=== PATIENT | male | born 1970 | race Caucasian/White ===

== ENCOUNTER 2022-01-06 15:37 | Observation (INO) ==
--- NOTE | 2022-01-06 15:51 | ED Triage Note ---
Date of Service January 06, 2022 History of Present Illness This patient was briefly evaluated while in triage. An abbreviated physical exam was performed. This patient is a 51-year-old Male with past medical history of Crohn's disease who presents to the ED for evaluation of sudden onset of amnesia. Pt. having difficulty remembering events of today and that his had back surgery 3 weeks ago. Pt. presents with a friend who was contacted by the to bring him in. Physical Exam VITALS: Vitals are noted on the nurse's note and reviewed by myself. GENERAL: This is a 51 year old white male, in no acute distress, nondiaphoretic, well-developed well-nourished. SKIN: No rashes, edema, erythema HEAD: Normocephalic atraumatic. EYES: Conjunctivae without injection, sclerae without icterus. NECK: No lymphadenopathy. No JVD. LUNGS: No retractions or accessory muscle use. MUSCULOSKELETAL: Normal gait. NEURO: Patient was alert and oriented to person and place. Unable to recall year. Initial orders for labs and / or imaging were placed and patient was placed in the waiting area until a bed is available. Please see further documentation for the full ED course.
[2022-01-06 16:15] LABS: Basophils # (auto) 0.04 K/uL (0-0.2); Basophils % (auto) 0.4 %; Eosinophils # (auto) 0.07 K/uL (0-0.50); Eosinophils % (auto) 0.8 %; Hematocrit (blood only) 43.3 % (40.1-51.0); Hemoglobin 14.5 g/dl (14.0-18.0); Immature Granulocytes # (auto) 0.04 K/uL (0.00-0.02); Immature Granulocytes % (auto) 0.4 %; Lymphocytes # (auto) 1.47 K/uL (1.2-3.4); Lymphocytes % (auto) 15.8 %; Mean Corpuscular Hemoglobin 29.5 pg (25.0-34.0); Mean Corpuscular Hgb Conc 33.5 g/dL (32.0-36.0); Mean Corpuscular Volume 88.2 fL (80.0-100.0); Mean Platelet Volume 9.6 fL (9.4-12.4); Monocytes # (auto) 0.74 K/uL (0.24-0.82); Monocytes % (auto) 7.9 %; Neutrophils # (auto) 6.96 K/uL (1.4-6.5); Neutrophils % (auto) 74.7 %; Platelet Count 243 K/uL (130-400); RDW Coefficient of Variation 14.3 % (11.5-14.5); RDW Standard Deviation 46.2 fL (36.4-46.3); Red Blood Count 4.91 M/uL (4.63-6.08); White Blood Count 9.32 K/ul (4.8-10.8)
[2022-01-06 16:17] LABS: iSTAT Creatinine 0.9 mg/dl (0.6-1.3); iSTAT Hemoglobin 15.3 g/dl (14.0-18.0); iSTAT Ionized Calcium 1.18 mmol/l (1.12-1.32); iSTAT Potassium 3.8 mmol/L (3.3-5.0)
[2022-01-06 16:24] LABS: Partial Thromboplastin Ratio 0.9; Partial Thromboplastin Time 23.4 Seconds (21.0-31.0); Prothrombin Time 10.3 Seconds (9.0-12.0)
[2022-01-06] MEDS ORDERED: OPTIRAY 320 125ml IV ONE (16:30)
--- NOTE | 2022-01-06 16:34 | CT Scan Report ---
CT SCAN OF THE BRAIN WITHOUT IV CONTRAST CLINICAL HISTORY: Strokelike symptoms. Change in mental status. COMPARISON STUDY: No priors. TECHNIQUE: Unenhanced axial CT scan of the brain is performed from the vertex to the skull base. A d ose lowering technique was utilized adhering to the principles of ALARA. CT DOSE: 788.63 mGycm FINDINGS: Brain parenchyma: The brain parenchyma is normal in appearance. There is no hemorrhage, mass effect, or evidence of acute territorial ischemia by CT criteria. Good-white matter differentiation is preser justine. No extra-axial fluid collection is seen. Ventricles, sulci, cisterns: Normal in configuration. Intracranial vasculature: The visualized intracranial vasculature at the skull base is normal in appe arance. Calvarium: Unremarkable. Sinuses and mastoids: The visualized paranasal sinuses are clear. The mastoid air cells are well pneu matized. Orbits: The bony orbits are grossly intact. IMPRESSION: There is no hemorrhage, mass effect, or evidence of acute territorial ischemia by CT nadir pal. ACT 112: Negative or not required by law. Electronically signed by: Iam Su M.D. 01/06/2022 4:32 PM
[2022-01-06 16:36] LABS: Troponin I High Sensitivity 6.3 pg/ml (0-20)
[2022-01-06 16:37] LABS: Albumin Globulin Ratio 1.5 (0.9-2); Albumin Level 4.2 gm/dl (3.4-5.0); BUN Creatinine Ratio 28.1 (10-20); Bilirubin,Total 0.8 mg/dl (0.2-1.0); Calcium 9.2 mg/dl (8.5-10.1); Creatinine Clr Calc Pharmacy 123.8 ml/min; Est GFR (African American) 114.7 ml/min; Globulin 2.8 gm/dl (2.5-4.0); Magnesium 1.9 mg/dl (1.7-2.4); Potassium 3.8 mmol/L (3.5-5.1)
--- NOTE | 2022-01-06 16:47 | CT Scan Report ---
CT ANGIOGRAM OF THE BRAIN; CT ANGIOGRAM OF THE NECK CLINICAL HISTORY: Strokelike symptoms. Change in mental status. COMPARISON STUDY: Unenhanced CT of the brain performed concurrently on 01/06/2022. TECHNIQUE: Following the IV administration of 120 of Optiray 320, CT angiogram of the head and neck w as performed from the aortic arch to the vertex. Images are reviewed in the axial, sagittal, and amena nal planes. 3-D MIPS images are created and assessed. IV contrast was administered without complicati on. All measurements were calculated based on NASCET criteria. A dose lowering technique was utilize d adhering to the principles of ALARA. CT DOSE: 992.60 mGycm FINDINGS: Brain parenchyma: The brain parenchyma is normal in appearance. There is no evidence of hemorrhage, m ass effect, or acute territorial ischemia noting angiographic phase technique. There is no evidence o f enhancing mass lesion on the angiogram phase images. The ventricles, sulci, and cisterns are normal in configuration. Good-white matter differentiation is preserved. No extra-axial fluid collection is seen. Thoracic aorta: Visualized portions of the thoracic aorta are normal in caliber. The aortic arch demo nstrates standard 3-vessel anatomy. Right carotid arterial system: The right common carotid artery is widely patent, as are the right int ernal and external carotid arteries. Left carotid arterial system: The left common carotid artery is widely patent, as are the left customer operations intern al and external carotid arteries. Vertebral arteries: The vertebral arteries are widely patent bilaterally noting left-sided dominance. Subclavian arteries: Widely patent bilaterally. Intracranial vasculature: The internal carotid arteries are patent at the skull base, as are the ante rior and middle cerebral arteries bilaterally. The vertebrobasilar system and posterior cerebral phillip daya are widely patent. The left vertebral artery is dominant. There is no aneurysm, high-grade steno sis, or focal vessel cut off seen throughout the intracranial circulation. Jugular veins: Patent bilaterally. Dural sinuses: Patent. Lung apices: Partially visualized upper lobe lung parenchyma appears clear. Soft tissues: The visualized pharyngeal soft tissues are normal in appearance noting angiographic pha se technique. The oropharyngeal airway appears widely patent. The salivary and thyroid glands are nor mal in appearance. No cervical lymphadenopathy is seen. Skeletal structures: The calvarium appears intact. The cervical spine is within normal limits. Orbits: The bony orbits are intact. Orbital contents are normal as visualized. Sinuses and mastoids: The paranasal sinuses are clear. The mastoid air cells are well pneumatized. IMPRESSION: 1. There is no evidence of hemorrhage, mass effect, or acute territorial ischemia noting angiographic phase technique. 2. Unremarkable CT angiogram of the brain. 3. Unremarkable CT angiogram of the neck. ACT 112: Negative or not required by law. Electronically signed by: Iam Su M.D. 01/06/2022 4:46 PM
[2022-01-06 17:02] LABS: Appearance Urine Clear (Clear); Bacteria Urine Automated Negative (Negative); Bilirubin Urine Negative (Negative); Blood Urine 1+ (Negative); Cast Urine Automated 0 /lpf (0-5); Color Urine Yellow; Epithelial Cell Urine Auto 0-5 /lpf (0-5); Glucose Urine UA Negative (Negative); Ketones Urine 1+ (Negative); Leukocyte Esterase Urine Negative (Negative); Nitrite Urine Negative (Negative); Protein Urine Negative (Negative); RBC Urine Automated 0-4 /hpf (0-4); Specific Gravity Urine > 1.045 (1.000-1.030); Urobilinogen Urine Negative (Negative); WBC Urine Automated 0 /hpf (0-5)
--- NOTE | 2022-01-06 17:02 | XRay Report ---
SINGLE VIEW CHEST CLINICAL HISTORY: Strokelike symptoms. Change in mental status. FINDINGS: 2 AP, portable, upright chest radiographs are obtained. No prior studies are available for comparison at the time of dictation. The cardiomediastinal silhouette is unremarkable. The lungs and pleural spaces are clear. No pneumothorax is seen. The bony thorax is grossly intact. IMPRESSION: No active disease in the chest. ACT 112: Negative or not required by law. Electronically signed by: Iam Su M.D. 01/06/2022 5:00 PM
[2022-01-06 17:33] LABS: Amphetamines+Metham, Urine Neg (Neg); Barbiturates, Urine Neg (Neg); Benzodiazepine, Urine Neg (Neg); Cocaine, Urine Neg (Neg); MDMA (Ecstacy), Urine Neg (Neg); Methadone, Urine Neg (Neg); Opiate, Urine Neg (Neg); Phencyclidine, Urine Neg (Neg)
[2022-01-06] MEDS ORDERED: LACTATED RINGER'S 1,000 ML IV ONE (17:58)
--- NOTE | 2022-01-06 18:13 | History & Physical Report ---
Date of Service January 06, 2022 Assessment & Plan (1) Transient global amnesia: Plan: Orgasm as precipitating event in setting of mild dehydration (BUN increase, high specific gravity urine with ketonuria) No other neurological deficits but prudent to get MRI brain w/o contrast Consult neurology - if completely back to his normal self tomorrow and MRI negative suspect this can be cancelled (2) Crohn's disease: Plan: No active flare. Continue azathioprine 150mg PO daily. Plan: VTE Prophylaxis - low risk Diet - heart healthy Disposition - observation status to med/tele Admission and Anticipated Discharge Date Admission Date: January 06, 2022 History of Present Illness Chief Complaint: Altered mental state Primary Care Provider: Hugh Oviedo MD Jake Limon is a 51 year old male who presents to the ER with altered mental state. The patient cannot remember anything that happened today, yesterday or generally what he was doing earlier this week. He is unable to tell me the last thing he remembers. He is orientated to the year and month but not date or day. Aware he is in [facility] but cannot remember getting here. 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 History is taken from his over the phone. She reports he was in his normal health earlier today and this started suddenly after he received oral sex around 1:30pm today. Sudden onset amnesia since but he has been walking around fine. Other than his memory she has not noticed any facial droop, extremity weakness, change in speech, vision or hearing. In the ER stroke workup with CT head and CT angiogram head and neck were negative. Urine toxicology screen negative. She denies he has been drinking alcohol.No infection signs or symptoms found. He was referred to medicine due to persistent amnesia. Allergies Allergy/AdvReac Type Severity Reaction Status Date / Time No Known Allergies Allergy Mild Verified 01/06/22 17:25 Home Medications Medication Instructions Recorded Confirmed Type cyclobenzaprine 10 mg tablet 10 mg PO TID PRN #30 tab 06/30/21 01/06/22 Rx azathioprine 50 mg tablet 150 mg PO QAM 01/06/22 01/06/22 History Past Med/Surg History Medical History Anemia HISTORY OF ANEMIA Colon ulcer Crohn's disease Triceps tendon rupture RIGHT SIDE (REASON FOR SURGERY) Surgical History History of colonoscopy LAST ONE 2 YEARS AGO Hx of elbow surgery Hx of LASIK Hx of right knee surgery Hx of vasectomy Family History Mother Aortic aneurysm Marfans syndrome Aunt Breast cancer Grandmother (Paternal) Colorectal cancer Sister Marfans syndrome Transient ischemic attack (TIA) Father Parkinson disease Stroke Social History Smoking Status: Never smoker Second Hand Exposure: No; Hx Alcohol Use: Yes Alcohol type: beer Hx Substance Use: No Preferred Language: Persian Communication Ability: Effective Visual Impairment: No Limitations Crown Ceramist Required: No Beliefs That Will Affect Care: None marital status: Current Living Situation: Spouse Current Living Situation Comment: AND DAUGHTER current occupational status: employed current occupation: [employer] Other Information That Helps Us Care for You: No other: Previous [employer] Service- 20 years in [employer] Feels Safe at Home: Yes Safety Concerns: Feels Safe At This Time Assistive Devices: None Review of Systems Review of Systems: All systems reviewed & are unremarkable except as noted in HPI & below Physical Exam Constitutional: WD/WN, vitals as above Eyes: PERRL, conjunctivae normal, anicteric sclerae EOM intact bilaterally ENMT: external ear and nose normal, oropharynx normal Neck: trachea midline, no thyromegaly Respiratory: normal respiratory effort, lungs clear to auscultation Cardiovascular: RRR, no murmur, no edema Gastrointestinal (Abdomen): normal bowel sounds, soft, nontender, no hepatosplenomegaly Musculoskeletal: no cyanosis or clubbing, extremities motor strength 5/5 Skin: no rashes, warm and dry Neurologic: moves all extremities and awake; no focal motor deficits and not confused Speech / Cognition: normal speech Motor/Sensory: no tremor and no pronator drift Coordination: normal knjfac-lw-vwei test and normal h eel-to-venegas test Psychiatric: A+Ox3, euthymic affect Genitourinary: no CVA tenderness Results & Data Results & Data ([facility]) Vital Signs (Past 12 Hours) Vital Signs Temp Pulse Pulse Resp BP BP Pulse Ox 01/06/22 17:20 72 19 147/90 H 97 01/06/22 16:12 65 19 140/93 98 01/06/22 15:48 36.6 C 65 16 140/92 96 Laboratory Results Abnormal lab results 01/06/22 01/06/22 01/06/22 Range/Units 15:59 15:59 16:04 Neut # (Auto) 6.96 H (1.4-6.5) K/uL Immature Gran # (Auto) 0.04 H (0.00-0.02) K/uL Sodium 135 L (136-145) mmol/L POC Anion Gap 15.0 L (16-25) mmol/L POC BUN 24 H (7-18) mg/dl BUN 25 H (6-23) mg/dl BUN/Creatinine Ratio 28.1 H (10-20) Ur Specific [place] (1.000-1.030) Urine Ketones (Negative) Urine Blood (Negative) 01/06/22 Range/Units 16:42 Neut # (Auto) (1.4-6.5) K/uL Immature Gran # (Auto) (0.00-0.02) K/uL Sodium (136-145) mmol/L POC Anion Gap (16-25) mmol/L POC BUN (7-18) mg/dl BUN (6-23) mg/dl BUN/Creatinine Ratio (10-20) Ur Specific [place] > 1.045 H (1.000-1.030) Urine Ketones 1+ H (Negative) Urine Blood 1+ H (Negative) Diagnostic Findings SINGLE VIEW CHEST CLINICAL HISTORY: Strokelike symptoms. Change in mental status. FINDINGS: 2 AP, portable, upright chest radiographs are obtained. No prior studies are available for comparison at the time of dictation. The cardiomediastinal silhouette is unremarkable. The lungs and pleural spaces are clear. No pneumothorax is seen. The bony thorax is grossly intact. IMPRESSION: No active disease in the chest. CT SCAN OF THE BRAIN WITHOUT IV CONTRAST CLINICAL HISTORY: Strokelike symptoms. Change in mental status. COMPARISON STUDY: No priors. TECHNIQUE: Unenhanced axial CT scan of the brain is performed from the vertex to the skull base. A dose lowering technique was utilized adhering to the principles of ALARA. CT DOSE: 788.63 mGycm FINDINGS: Brain parenchyma: The brain parenchyma is normal in appearance. There is no hemorrhage, mass effect, or evidence of acute territorial ischemia by CT criteria. Good-white matter differentiation is preserved. No extra-axial fluid collection is seen. Ventricles, sulci, cisterns: Normal in configuration. Intracranial vasculature: The visualized intracranial vasculature at the skull base is normal in appearance. Calvarium: Unremarkable. Sinuses and mastoids: The visualized paranasal sinuses are clear. The mastoid air cells are well pneumatized. Orbits: The bony orbits are grossly intact. IMPRESSION: There is no hemorrhage, mass effect, or evidence of acute territorial ischemia by CT criteria. CT ANGIOGRAM OF THE BRAIN; CT ANGIOGRAM OF THE NECK CLINICAL HISTORY: Strokelike symptoms. Change in mental status. COMPARISON STUDY: Unenhanced CT of the brain performed concurrently on 01/06/2022. TECHNIQUE: Following the IV administration of 120 of Optiray 320, CT angiogram of the head and neck was performed from the aortic arch to the vertex. Images are reviewed in the axial, sagittal, and coronal planes. 3-D MIPS images are created and assessed. IV contrast was administered without complication. All measurements were calculated based on NASCET criteria. A dose lowering technique was utilized adhering to the principles of ALARA. CT DOSE: 992.60 mGycm FINDINGS: Brain parenchyma: The brain parenchyma is normal in appearance. There is no evidence of hemorrhage, mass effect, or acute territorial ischemia noting angiographic phase technique. There is no evidence of enhancing mass lesion on the angiogram phase images. The ventricles, sulci, and cisterns are normal in configuration. Good-white matter differentiation is preserved. No extra-axial fluid collection is seen. Thoracic aorta: Visualized portions of the thoracic aorta are normal in caliber. The aortic arch demonstrates standard 3-vessel anatomy. Right carotid arterial system: The right common carotid artery is widely patent, as are the right internal and external carotid arteries. Left carotid arterial system: The left common carotid artery is widely patent, as are the left internal and external carotid arteries. Vertebral arteries: The vertebral arteries are widely patent bilaterally noting left-sided dominance. Subclavian arteries: Widely patent bilaterally. Intracranial vasculature: The internal carotid arteries are patent at the skull base, as are the anterior and middle cerebral arteries bilaterally. The vertebrobasilar system and posterior cerebral arteries are widely patent. The left vertebral artery is dominant. There is no aneurysm, high-grade stenosis, or focal vessel cut off seen throughout the intracranial circulation. Jugular veins: Patent bilaterally. Dural sinuses: Patent. Lung apices: Partially visualized upper lobe lung parenchyma appears clear. Soft tissues: The visualized pharyngeal soft tissues are normal in appearance noting angiographic phase technique. The oropharyngeal airway appears widely patent. The salivary and thyroid glands are normal in appearance. No cervical lymphadenopathy is seen. Skeletal structures: The calvarium appears intact. The cervical spine is within normal limits. Orbits: The bony orbits are intact. Orbital contents are normal as visualized. Sinuses and mastoids: The paranasal sinuses are clear. The mastoid air cells are well pneumatized. IMPRESSION: 1. There is no evidence of hemorrhage, mass effect, or acute territorial ischemia noting angiographic phase technique. 2. Unremarkable CT angiogram of the brain. 3. Unremarkable CT angiogram of the neck. Medications Administered ER Medications Given: None ECG Indication: altered mental status Rate (beats per minute): 65 Rhythm: normal sinus Findings: no acute ischemic change Comparison ECG Date: no prior available Code Status & VTE Plan Code Status Full VTE Prophylaxis Plan VTE Prophylaxis will be ordered: No PG Care Time/CCT Total # of Minutes Spent Total Time Spent with Patient: Total time spent is greater than 50% in coordination of care (as documented) at patient's floor/unit and/or counseling patient: Coding Level of Care Code INT OBSERVATION CARE 70M LVL 3 Diagnoses Transient global amnesia G45.4 Crohn's disease K50.90
--- NOTE | 2022-01-06 18:21 | Emergency Department Note ---
History of Present Illness General Chief complaint: Confusion Stated complaint: SUDDEN AMNESIA Time Seen by Provider: 01/06/22 16:22 Source: patient and family ( on Frederic and friend at bedside) History of Present Illness Provider complaint: Altered mental status Onset (ago): hour(s) (2.5) Associated symptoms: + confusion; no fever/chills, no headaches, no nausea/vomiting or no seizure 51-year-old male presents emergency department with friend for altered mental status. Friend at bedside was able to call the on Frederic who was able to give the majority of the history. The reports that at 1330 she was performing oral sex on the patient and then after she finished at 1345 she noticed that the patient was very confused. She noticed that the patient was repetitively asking the same question over and over again and could not remember anything. She denies that the patient fell or hit his head. Patient is currently not reporting any chest pain. No nausea and vomiting per the or patient. No fever. denies any alcohol or drug use by herself or the patient. Home Medications Medication Instructions Recorded Confirmed Type cyclobenzaprine 10 mg tablet 10 mg PO TID PRN #30 tab 06/30/21 01/06/22 Rx azathioprine 50 mg tablet 150 mg PO QAM 01/06/22 01/06/22 History Allergies Allergy/AdvReac Type Severity Reaction Status Date / Time No Known Allergies Allergy Mild Verified 01/06/22 17:25 Past Med/Surg History Medical History Anemia HISTORY OF ANEMIA Colon ulcer Crohn's disease Triceps tendon rupture RIGHT SIDE (REASON FOR SURGERY) Surgical History History of colonoscopy LAST ONE 2 YEARS AGO Hx of elbow surgery Hx of LASIK Hx of right knee surgery Hx of vasectomy Family History Mother Aortic aneurysm Marfans syndrome Aunt Breast cancer Grandmother (Paternal) Colorectal cancer Sister Marfans syndrome Transient ischemic attack (TIA) Father Parkinson disease Stroke Social History Smoking Status: Never smoker Second Hand Exposure: No; Hx Alcohol Use: Yes Alcohol type: beer Hx Substance Use: No Preferred Language: Argentine Communication Ability: Effective Visual Impairment: No Limitations Beliefs That Will Affect Care: None marital status: Current Living Situation: Family Current Living Situation Comment: AND DAUGHTER current occupational status: employed current occupation: Teacher- [employer] other: Previous [employer]- 20 years in [place] Feels Safe at Home: Yes Assistive Devices: None Review of Systems Unobtainable due to cognitive status Physical Exam Vital Signs Vital Signs - 24 hr 01/06/22 15:48 01/06/22 16:12 01/06/22 17:20 Temperature 36.6 C Temperature Source Temporal Artery Scan Pulse Rate 65 Pulse Rate [Right Finger] 65 72 Respiratory Rate 16 19 19 Blood Pressure 140/92 Blood Pressure [Right Arm] 140/93 147/90 H Blood Pressure Mean 108 Blood Pressure Mean [Right Arm] 108 109 Blood Pressure Position Sitting Pulse Oximetry 96 98 97 Oxygen Delivery Method Room Air Room Air Room Air Sepsis Recent Fever Within 48 Hours No Sepsis New/Unexplained Change in Mental Status No Sepsis Action Taken by Nursing No Action Required 01/06/22 18:14 Temperature Temperature Source Pulse Rate Pulse Rate [Right Finger] 69 Respiratory Rate 19 Blood Pressure Blood Pressure [Right Arm] 133/94 Blood Pressure Mean Blood Pressure Mean [Right Arm] 107 Blood Pressure Position Pulse Oximetry 97 Oxygen Delivery Method Room Air Sepsis Recent Fever Within 48 Hours Sepsis New/Unexplained Change in Mental Status Sepsis Action Taken by Nursing Physical Exam HENT: Exam performed. - Head: Normocephalic and atraumatic. - Right Ear: External ear normal. No mastoid tenderness. - Left Ear: External ear normal. No mastoid tenderness. - Mouth/Throat: The oropharynx is clear and moist. No trismus in the jaw. No dental abscesses or uvula swelling. No oropharyngeal exudate or tonsillar abscesses. EYES: Conjunctivae and EOM are normal. Pupils are equal, round, and reactive to light. Right eye exhibits no discharge. Left eye exhibits no discharge. No scleral icterus. NECK: Normal range of motion. Neck supple. No JVD present. No spinous process tenderness present. No carotid bruit present. No rigidity. No tracheal deviation and normal range of motion present. No Brudzinski's sign and no Kernig's sign noted. CV: Normal rate, regular rhythm, normal heart sounds and intact distal pulses. There is no peripheral edema. Palpable radial pulses bue. PULM/CHEST: Effort normal and breath sounds normal. No respiratory distress. No stridor. He has no wheezes. He has no rales. - Chest Wall: He exhibits no tenderness. ABD: The abdomen is soft. Bowel sounds are normal. He has no distension. No mass is present. There is no tenderness. There is no rebound, no guarding, no Carballo's sign and no tenderness at McBurney's point. Rovsig negative. MUSC/SKEL: Normal range of motion. There is no peripheral edema, tenderness or deformity. LYMPH: No cervical adenopathy. NEURO: He is alert and oriented to place and time. Patient is not oriented to person. He has normal strength. No cranial nerve deficit or sensory deficit. Coordination and gait normal. Cerebellar tests wnl. SKIN: Skin is warm and dry. He is not diaphoretic. Course Course 1622: The patient was evaluated in room C9. A complete history and physical exam was performed Cardiac monitoring: An order was placed for continuous cardiac monitoring. The monitor shows a rate of65 with sinus rhythm Patient was seen during a time of extreme volume and extreme acuity in the emergency department. Nursing triage protocols were initiated and labs were drawn by protocol in the triage area. 1800: Vital signs stable. On repeat physical exam the patient has no meningeal signs motor and sensation grossly intact ambulating without difficulty no dysarthria or aphasia. Labs and imaging are within normal limits. Patient's alcohol is still pending. Findings are concerning for global amnesia. Discussed case with Dr. [facility] hospitalist who reviewed the patient's case for admission. Administered Medications Lactated Ringer's (Lr) 1,000 mls @ 999 mls/hr IV .[id number] ONE Stop: 01/06/22 18:58 Last Admin: 01/06/22 18:22 Dose: 999 mls/hr Documented by: [id number] Discontinued Medications Ioversol (Optiray 320 125ml) 120 ml IV ONCE ONE Stop: 01/06/22 16:31 Last Admin: 01/06/22 16:30 Dose: 120 ml Documented by: [id number] Medical Decision Making Laboratory Data Result diagrams: 01/06/22 15:59 01/06/22 15:59 Lab Results 01/06/22 01/06/22 01/06/22 Range/Units 15:59 15:59 15:59 WBC 9.32 (4.8-10.8) K/ul RBC 4.91 (4.63-6.08) M/uL Hgb 14.5 (14.0-18.0) g/dl POC Hgb (14.0-18.0) g/dl Hct 43.3 (40.1-51.0) % POC Hct (42-52) % MCV 88.2 (80.0-100.0) fL MCH 29.5 (25.0-34.0) pg MCHC 33.5 (32.0-36.0) g/dL RDW Std Deviation 46.2 (36.4-46.3) fL RDW Coeff of Hollie 14.3 (11.5-14.5) % Plt Count 243 (130-400) K/uL MPV 9.6 (9.4-12.4) fL Immature Gran % (Auto) 0.4 % Neut % (Auto) 74.7 % Lymph % (Auto) 15.8 % [facility] % (Auto) 7.9 % Eos % (Auto) 0.8 % Baso % (Auto) 0.4 % Neut # (Auto) 6.96 H (1.4-6.5) K/uL Lymph # (Auto) 1.47 (1.2-3.4) K/uL [facility] # (Auto) 0.74 (0.24-0.82) K/uL Eos # (Auto) 0.07 (0-0.50) K/uL Baso # (Auto) 0.04 (0-0.2) K/uL Immature Gran # (Auto) 0.04 H (0.00-0.02) K/uL PT 10.3 (9.0-12.0) Seconds INR 1.0 (0.9-1.1) APTT 23.4 (21.0-31.0) Seconds PTT Ratio 0.9 POC Sodium (135-144) mmol/L Sodium 135 L (136-145) mmol/L POC Potassium (3.3-5.0) mmol/L Potassium 3.8 (3.5-5.1) mmol/L POC Chloride (101-112) mmol/L Chloride 103 (98-107) mmol/L Carbon Dioxide 25 (21-32) mmol/L POC Total CO2 (24-31) mmol/L Anion Gap 7 (3-11) POC Anion Gap (16-25) mmol/L POC BUN (7-18) mg/dl BUN 25 H (6-23) mg/dl Creatinine 0.89 (0.6-1.4) mg/dl POC Creatinine (0.6-1.3) mg/dl Est Cr Clr Drug Dosing 123.8 ml/min Est GFR ( Amer) 114.7 ml/min Est GFR (Non-Af Amer) 99.0 ml/min BUN/Creatinine Ratio 28.1 H (10-20) Glucose 95 (70-99(Fasting)) mg/dl POC Glucose (other) (70-99) mg/dl Calcium 9.2 (8.5-10.1) mg/dl POC Ioniz Calcium Franklin (1.12-1.32) mmol/l Magnesium 1.9 (1.7-2.4) mg/dl Total Bilirubin 0.8 (0.2-1.0) mg/dl AST 20 (13-39) U/L ALT 19 (7-52) U/L Alkaline Phosphatase 56 (34-104) U/L Troponin I High Sens 6.3 (0-20) pg/ml Total Protein 7.0 (6.0-8.3) gm/dl Albumin 4.2 (3.4-5.0) gm/dl Globulin 2.8 (2.5-4.0) gm/dl Albumin/Globulin Ratio 1.5 (0.9-2) Urine Color Urine Appearance (Clear) Urine pH (4.5-7.5) Ur Specific Daisy (1.000-1.030) Urine Protein (Negative) Urine Glucose (UA) (Negative) Urine Ketones (Negative) Urine Blood (Negative) Urine Nitrite (Negative) Urine Bilirubin (Negative) Urine Urobilinogen (Negative) Ur Leukocyte Esterase (Negative) Urine WBC (Auto) (0-5) /hpf Urine RBC (Auto) (0-4) /hpf U Hyaline Cast (Auto) (0-5) /lpf U Epithel Cells (Auto) (0-5) /lpf Urine Bacteria (Auto) (Negative) Urine Opiates Screen (Neg) Ur Methadone, Qual (Neg) Urine Barbiturates (Neg) Ur Phencyclidine (PCP) (Neg) U Amphetamin/Meth Scrn (Neg) MDMA (Ecstasy) Screen (Neg) U Benzodiazepines Scrn (Neg) Ur Cocaine Metabolite (Neg) U Marijuana (THC) Screen (Neg) Ethyl Alcohol mg/dL (<10.0) mg/dl SARS-CoV-2, RNA, NAAT (NEGATIVE) Blood Type Antibody Screen 01/06/22 01/06/22 01/06/22 Range/Units 16:04 16:09 16:42 WBC (4.8-10.8) K/ul RBC (4.63-6.08) M/uL Hgb (14.0-18.0) g/dl POC Hgb 15.3 (14.0-18.0) g/dl Hct (40.1-51.0) % POC Hct 45 (42-52) % MCV (80.0-100.0) fL MCH (25.0-34.0) pg MCHC (32.0-36.0) g/dL RDW Std Deviation (36.4-46.3) fL RDW Coeff of Hollie (11.5-14.5) % Plt Count (130-400) K/uL MPV (9.4-12.4) fL Immature Gran % (Auto) % Neut % (Auto) % Lymph % (Auto) % [facility] % (Auto) % Eos % (Auto) % Baso % (Auto) % Neut # (Auto) (1.4-6.5) K/uL Lymph # (Auto) (1.2-3.4) K/uL [facility] # (Auto) (0.24-0.82) K/uL Eos # (Auto) (0-0.50) K/uL Baso # (Auto) (0-0.2) K/uL Immature Gran # (Auto) (0.00-0.02) K/uL PT (9.0-12.0) Seconds INR (0.9-1.1) APTT (21.0-31.0) Seconds PTT Ratio POC Sodium 137 (135-144) mmol/L Sodium (136-145) mmol/L POC Potassium 3.8 (3.3-5.0) mmol/L Potassium (3.5-5.1) mmol/L POC Chloride 101 (101-112) mmol/L Chloride (98-107) mmol/L Carbon Dioxide (21-32) mmol/L POC Total CO2 25 (24-31) mmol/L Anion Gap (3-11) POC Anion Gap 15.0 L (16-25) mmol/L POC BUN 24 H (7-18) mg/dl BUN (6-23) mg/dl Creatinine (0.6-1.4) mg/dl POC Creatinine 0.9 (0.6-1.3) mg/dl Est Cr Clr Drug Dosing ml/min Est GFR ( Amer) ml/min Est GFR (Non-Af Amer) ml/min BUN/Creatinine Ratio (10-20) Glucose (70-99(Fasting)) mg/dl POC Glucose (other) 97 (70-99) mg/dl Calcium (8.5-10.1) mg/dl POC Ioniz Calcium Franklin 1.18 (1.12-1.32) mmol/l Magnesium (1.7-2.4) mg/dl Total Bilirubin (0.2-1.0) mg/dl AST (13-39) U/L ALT (7-52) U/L Alkaline Phosphatase (34-104) U/L Troponin I High Sens (0-20) pg/ml Total Protein (6.0-8.3) gm/dl Albumin (3.4-5.0) gm/dl Globulin (2.5-4.0) gm/dl Albumin/Globulin Ratio (0.9-2) Urine Color Yellow Urine Appearance Clear (Clear) Urine pH 5.0 (4.5-7.5) Ur Specific Daisy > 1.045 H (1.000-1.030) Urine Protein Negative (Negative) Urine Glucose (UA) Negative (Negative) Urine Ketones 1+ H (Negative) Urine Blood 1+ H (Negative) Urine Nitrite Negative (Negative) Urine Bilirubin Negative (Negative) Urine Urobilinogen Negative (Negative) Ur Leukocyte Esterase Negative (Negative) Urine WBC (Auto) 0 (0-5) /hpf Urine RBC (Auto) 0-4 (0-4) /hpf U Hyaline Cast (Auto) 0 (0-5) /lpf U Epithel Cells (Auto) 0-5 (0-5) /lpf Urine Bacteria (Auto) Negative (Negative) Urine Opiates Screen (Neg) Ur Methadone, Qual (Neg) Urine Barbiturates (Neg) Ur Phencyclidine (PCP) (Neg) U Amphetamin/Meth Scrn (Neg) MDMA (Ecstasy) Screen (Neg) U Benzodiazepines Scrn (Neg) Ur Cocaine Metabolite (Neg) U Marijuana (THC) Screen (Neg) Ethyl Alcohol mg/dL (<10.0) mg/dl SARS-CoV-2, RNA, NAAT (NEGATIVE) Blood Type A Positive Antibody Screen NEGATIVE 01/06/22 01/06/22 01/06/22 Range/Units 16:42 17:50 18:03 WBC (4.8-10.8) K/ul RBC (4.63-6.08) M/uL Hgb (14.0-18.0) g/dl POC Hgb (14.0-18.0) g/dl Hct (40.1-51.0) % POC Hct (42-52) % MCV (80.0-100.0) fL MCH (25.0-34.0) pg MCHC (32.0-36.0) g/dL RDW Std Deviation (36.4-46.3) fL RDW Coeff of Hollie (11.5-14.5) % Plt Count (130-400) K/uL MPV (9.4-12.4) fL Immature Gran % (Auto) % Neut % (Auto) % Lymph % (Auto) % [facility] % (Auto) % Eos % (Auto) % Baso % (Auto) % Neut # (Auto) (1.4-6.5) K/uL Lymph # (Auto) (1.2-3.4) K/uL [facility] # (Auto) (0.24-0.82) K/uL Eos # (Auto) (0-0.50) K/uL Baso # (Auto) (0-0.2) K/uL Immature Gran # (Auto) (0.00-0.02) K/uL PT (9.0-12.0) Seconds INR (0.9-1.1) APTT (21.0-31.0) Seconds PTT Ratio POC Sodium (135-144) mmol/L Sodium (136-145) mmol/L POC Potassium (3.3-5.0) mmol/L Potassium (3.5-5.1) mmol/L POC Chloride (101-112) mmol/L Chloride (98-107) mmol/L Carbon Dioxide (21-32) mmol/L POC Total CO2 (24-31) mmol/L Anion Gap (3-11) POC Anion Gap (16-25) mmol/L POC BUN (7-18) mg/dl BUN (6-23) mg/dl Creatinine (0.6-1.4) mg/dl POC Creatinine (0.6-1.3) mg/dl Est Cr Clr Drug Dosing ml/min Est GFR ( Amer) ml/min Est GFR (Non-Af Amer) ml/min BUN/Creatinine Ratio (10-20) Glucose (70-99(Fasting)) mg/dl POC Glucose (other) (70-99) mg/dl Calcium (8.5-10.1) mg/dl POC Ioniz Calcium Franklin (1.12-1.32) mmol/l Magnesium (1.7-2.4) mg/dl Total Bilirubin (0.2-1.0) mg/dl AST (13-39) U/L ALT (7-52) U/L Alkaline Phosphatase (34-104) U/L Troponin I High Sens (0-20) pg/ml Total Protein (6.0-8.3) gm/dl Albumin (3.4-5.0) gm/dl Globulin (2.5-4.0) gm/dl Albumin/Globulin Ratio (0.9-2) Urine Color Urine Appearance (Clear) Urine pH (4.5-7.5) Ur Specific Daisy (1.000-1.030) Urine Protein (Negative) Urine Glucose (UA) (Negative) Urine Ketones (Negative) Urine Blood (Negative) Urine Nitrite (Negative) Urine Bilirubin (Negative) Urine Urobilinogen (Negative) Ur Leukocyte Esterase (Negative) Urine WBC (Auto) (0-5) /hpf Urine RBC (Auto) (0-4) /hpf U Hyaline Cast (Auto) (0-5) /lpf U Epithel Cells (Auto) (0-5) /lpf Urine Bacteria (Auto) (Negative) Urine Opiates Screen Neg (Neg) Ur Methadone, Qual Neg (Neg) Urine Barbiturates Neg (Neg) Ur Phencyclidine (PCP) Neg (Neg) U Amphetamin/Meth Scrn Neg (Neg) MDMA (Ecstasy) Screen Neg (Neg) U Benzodiazepines Scrn Neg (Neg) Ur Cocaine Metabolite Neg (Neg) U Marijuana (THC) Screen Neg (Neg) Ethyl Alcohol mg/dL < 10.0 (<10.0) mg/dl SARS-CoV-2, RNA, NAAT NEGATIVE (NEGATIVE) Blood Type Antibody Screen Imaging Data Radiologist's Impression: Chest X-Ray 01/06/22 15:52 SINGLE VIEW CHEST CLINICAL HISTORY: Strokelike symptoms. Change in mental status. FINDINGS: 2 AP, portable, upright chest radiographs are obtained. No prior studies are available for comparison at the time of dictation. The cardiomediastinal silhouette is unremarkable. The lungs and pleural spaces are clear. No pneumothorax is seen. The bony thorax is grossly intact. IMPRESSION: No active disease in the chest. ACT 112: Negative or not required by law. Electronically signed by: Iam Su M.D. 01/06/2022 5:[address] 01/06/22 15:52 CT SCAN OF THE BRAIN WITHOUT IV CONTRAST CLINICAL HISTORY: Strokelike symptoms. Change in mental status. COMPARISON STUDY: No priors. TECHNIQUE: Unenhanced axial CT scan of the brain is performed from the vertex to the skull base. A dose lowering technique was utilized adhering to the principles of ALARA. CT DOSE: 788.63 mGycm FINDINGS: Brain parenchyma: The brain parenchyma is normal in appearance. There is no hemorrhage, mass effect, or evidence of acute territorial ischemia by CT criteria. Good-white matter differentiation is preserved. No extra-axial fluid c ollection is seen. Ventricles, sulci, cisterns: Normal in configuration. Intracranial vasculature: The visualized intracranial vasculature at the skull base is normal in appearance. Calvarium: Unremarkable. Sinuses and mastoids: The visualized paranasal sinuses are clear. The mastoid air cells are well pneumatized. Orbits: The bony orbits are grossly intact. IMPRESSION: There is no hemorrhage, mass effect, or evidence of acute territorial ischemia by CT criteria. ACT 112: Negative or not required by law. Electronically signed by: Iam Su M.D. 01/06/2022 4:32 PM Head CTA 01/06/22 15:52 CT ANGIOGRAM OF THE BRAIN; CT ANGIOGRAM OF THE NECK CLINICAL HISTORY: Strokelike symptoms. Change in mental status. COMPARISON STUDY: Unenhanced CT of the brain performed concurrently on 01/06/2022. TECHNIQUE: Following the IV administration of 120 of Optiray 320, CT angiogram of the head and neck was performed from the aortic arch to the vertex. Images are reviewed in the axial, sagittal, and coronal planes. 3-D MIPS images are created and assessed. IV contrast was administered without complication. All measurements were calculated based on NASCET criteria. A dose lowering t echnique was utilized adhering to the principles of ALARA. CT DOSE: 992.60 mGycm FINDINGS: Brain parenchyma: The brain parenchyma is normal in appearance. There is no evidence of hemorrhage, mass effect, or acute territorial ischemia noting angiographic phase technique. There is no evidence of enhancing mass lesion on the angiogram phase images. The ventricles, sulci, and cisterns are normal in configuration. Good-white matter differentiation is preserved. No extra-axial fluid collection is seen. Thoracic aorta: Visualized portions of the thoracic aorta are normal in caliber. The aortic arch demonstrates standard 3-vessel anatomy. Right carotid arterial system: The right common carotid artery is widely patent, as are the right internal and external carotid arteries. Left carotid arterial system: The left common carotid artery is widely patent, as are the left internal and external carotid arteries. Vertebral arteries: The vertebral arteries are widely patent bilaterally noting left-sided dominance. Subclavian arteries: Widely patent bilaterally. Intracranial vasculature: The internal carotid arteries are patent at the skull base, as are the anterior and middle cerebral arteries bilaterally. The vertebrobasilar system and posterior cerebral arteries are widely patent. The left vertebral artery is dominant. There is no aneurysm, high-grade stenosis, or focal vessel cut off seen throughout the intracranial circulation. Jugular veins: Patent bilaterally. Dural sinuses: Patent. Lung apices: Partially visualized upper lobe lung parenchyma appears clear. Soft tissues: The visualized pharyngeal soft tissues are normal in appearance noting angiographic phase technique. The oropharyngeal airway appears widely patent. The salivary and thyroid glands are normal in appearance. No cervical lymphadenopathy is seen. Skeletal structures: The calvarium appears intact. The cervical spine is within normal limits. Orbits: The bony orbits are intact. Orbital contents are normal as visualized. Sinuses and mastoids: The paranasal sinuses are clear. The mastoid air cells are well pneumatized. IMPRESSION: 1. There is no evidence of hemorrhage, mass effect, or acute territorial ischemia noting angiographic phase technique. 2. Unremarkable CT angiogram of the brain. 3. Unremarkable CT angiogram of the neck. ACT 112: Negative or not required by law. Electronically signed by: Iam Su M.D. 01/06/2022 4:46 PM Neck CTA 01/06/22 15:52 CT ANGIOGRAM OF THE BRAIN; CT ANGIOGRAM OF THE NECK CLINICAL HISTORY: Strokelike symptoms. Change in mental status. COMPARISON STUDY: Unenhanced CT of the brain performed concurrently on 01/06. TECHNIQUE: Following the IV administration of 120 of Optiray 320, CT angiogram of the head and neck was performed from the aortic arch to the vertex. Images are reviewed in the axial, sagittal, and coronal planes. 3-D MIPS images are created and assessed. IV contrast was administered without complication. All measurements were calculated based on NASCET criteria. A dose lowering technique was utilized adhering to the principles of ALARA. CT DOSE: 992.60 mGycm FINDINGS: Brain parenchyma: The brain parenchyma is normal in appearance. There is no evidence of hemorrhage, mass effect, or acute territorial ischemia noting angiographic phase technique. There is no evidence of enhancing mass lesion on the angiogram phase images. The ventricles, sulci, and cisterns are normal in configuration. Good-white matter differentiation is preserved. No extra-axial fluid collection is seen. Thoracic aorta: Visualized portions of the thoracic aorta are normal in caliber. The aortic arch demonstrates standard 3-vessel anatomy. Right carotid arterial system: The right common carotid artery is widely patent, as are the right internal and external carotid arteries. Left carotid arterial system: The left common carotid artery is widely patent, as are the left internal and external carotid arteries. Vertebral arteries: The vertebral arteries are widely patent bilaterally noting left-sided dominance. Subclavian arteries: Widely patent bilaterally. Intracranial vasculature: The internal carotid arteries are patent at the skull base, as are the anterior and middle cerebral arteries bilaterally. The vertebrobasilar system and posterior cerebral arteries are widely patent. The left vertebral artery is dominant. There is no aneurysm, high-grade stenosis, or focal vessel cut off seen throughout the intracranial circulation. Jugular veins: Patent bilaterally. Dural sinuses: Patent. Lung apices: Partially visualized upper lobe lung parenchyma appears clear. Soft tissues: The visualized pharyngeal soft tissues are normal in appearance noting angiographic phase technique. The oropharyngeal airway appears widely patent. The salivary and thyroid glands are normal in appearance. No cervical lymphadenopathy is seen. Skeletal structures: The calvarium appears intact. The cervical spine is within normal limits. Orbits: The bony orbits are intact. Orbital contents are normal as visualized. Sinuses and mastoids: The paranasal sinuses are clear. The mastoid air cells are well pneumatized. IMPRESSION: 1. There is no evidence of hemorrhage, mass effect, or acute territorial ischemia noting angiographic phase technique. 2. Unremarkable CT angiogram of the brain. 3. Unremarkable CT angiogram of the neck. ACT 112: Negative or not required by law. Electronically signed by: Iam Su M.D. 01/06/2022 4:46 PM ECG Data Indication: + altered mental status Rate (beats per minute): 65 Rhythm: + normal sinus ECG Intervals/blocks: + Normal QRS, + Normal [place] and + Normal QT-c ECG ST segments: + Normal ST segments [facility] Narrative 1622: The patient was evaluated in room C9. A complete history and physical exam was performed Cardiac monitoring: An order was placed for continuous cardiac monitoring. The monitor shows a rate of65 with sinus rhythm Patient was seen during a time of extreme volume and extreme acuity in the emergency department. Nursing triage protocols were initiated and labs were drawn by protocol in the triage area. 1800: Vital signs stable. On repeat physical exam the patient has no meningeal signs motor and sensation grossly intact ambulating without difficulty no dysarthria or aphasia. Labs and imaging are within normal limits. Patient's alcohol is still pending. Findings are concerning for global amnesia. Discussed case with Dr. [facility] hospitalist who reviewed the patient's case for admission. Impression & Plan Transient global amnesia Discharge Plan Visit Data Chief Complaint: Confusion Stated Complaint: SUDDEN AMNESIA ED Provider: Johan Leal Discharge Problem: Transient global amnesia Patient Disposition: Being Evaluated by Hospitalist Forms Stand Alone Forms: [facility] Prescriptions Prescriptions: No Action cyclobenzaprine 10 mg tablet 10 mg PO TID PRN (Reason: muscle spasm) Qty: 30 RF: 0 azathioprine 50 mg tablet 150 mg PO QAM RF: 0 Referrals Referrals: Pro,Hugh Cruz MD [Primary Care Provider] -
--- NOTE | 2022-01-06 20:11 | Magnetic Resonance Report ---
MRI OF THE BRAIN WITHOUT IV CONTRAST CLINICAL HISTORY: Change in mental status. Amnesia COMPARISON STUDY: CT of the brain dated 01/06/2022. TECHNIQUE: MRI of the brain was performed utilizing various T1 and T2-weighted sequences in the axial , sagittal, and coronal planes. IV contrast was not administered for this examination. FINDINGS: Brain parenchyma: The brain parenchyma is normal in appearance. There is no hemorrhage or mass effect . There is no restricted diffusion to suggest acute ischemia. Good-white matter differentiation is pr eserved. No extra-axial fluid collection is seen. The cerebellar tonsils are normal in configuration. Ventricles, sulci, and cisterns: Normal in configuration. Pituitary and sella: Unremarkable. Intracranial vasculature: Normal flow voids are maintained at the skull base. Orbits: The bony orbits are grossly intact. Orbital contents are normal in appearance. Sinuses and mastoids: Clear. Calvarium: Unremarkable. Cervical cord: Partially visualized cervical spinal cord is normal in morphology and signal intensity . IMPRESSION: No acute intracranial abnormality. ACT 112: Negative or not required by law. Electronically signed by: Iam Su M.D. 01/06/2022 8:08 PM
[2022-01-06] MEDS ORDERED: ACETAMINOPHEN 325 MG TAB PO PRN (21:27)
[2022-01-06] MEDS: LACTATED RINGER'S 1,000 ML IV SCH (22:22)
[2022-01-07] MEDS: LACTATED RINGER'S 1,000 ML IV SCH (06:25)
[2022-01-07] MEDS ORDERED: azaTHIOprine 50 MG TAB PO SCH (09:00)
--- NOTE | 2022-01-07 09:57 | Neurology Consultation ---
Date of Consultation January 07, 2022 Assessment & Plan (1) Transient global amnesia: patient has a history of acute onset memory loss January 06 consistent with transient global amnesia. He had retrograde and anterograde amnesia, but these are improving. He has no focal neurologic findings or deficits on examination, meningeal signs, or encephalopathy. He has no speech issues. Neuro imaging was unremarkable and he has no evidence of stroke or vascular issues of the head or neck. The etiology of this event is likely temporal lobe vasospasm. I note that his blood pressure was elevated and he had some dehydration. These could have been the "set up" for this, triggered by orgasm. Recommendations: 1. I see no need for additional neurologic testing at this time. 2. there is no other additional specific treatment for transient global amnesia 3. Monitor blood pressure and keep hydrated. 4. Could follow up in Neurology in 2-3 weeks with the PA. Overall, I spent a total of 75 minutes with this case including review of records, review of MRI head CT films, direct evaluation the patient at bedside, and discussion of the case with the patient at bedside, the patient's , and Dr. Mcclain, Occluding differential diagnosis and treatment options. (2) Hypertension: History of Present Illness Reason for Consultation: Patient is a 51-year-old, who I was asked to see at the request of Dr. Alejandre for neurologic consultation regarding acute onset memory. Requesting Physician: Dr. Alejandre Attending Physician: Yan Mcclain MD History of Present Illness I spoke to the patient his via telephone, at the same time, to gather history. The patient has a history of Crohn's disease for the last 5-6 years on azathioprine currently. He is on no other medication. He has some anemia and history of colonic ulcer. Two weeks ago he started having some low back pain and spasms. He had a prednisone pack which helps some any finish this 2 days ago. Patient has been relaxed and enjoying the summer. He does not have significant anxiety or depression.Patient has no history of migraine headaches or other neurologic conditions. he has no history of hypertension, diabetes, heart disease, dyslipidemia, previous stroke. Patient woke up around 6 o'clock January 06 feeling. He came downstairs around 730-80 breakfast. He has been the morning doing various tasks including laundry and talking. He has some recollection of these events. He knew that he had yogurt for Lyme somewhere around noon or so. says the patient was cooking Bratwurst when outside on the patio to eat much then came inside and drained the water. Patient does not recall most of this. Around 1330 he and his had sex and around 1345 he had an orgasm. immediately following this he seemed confused and was repeating questions. This was not improved and he had no recall of the events that just happened. this extended into the whole morning and stayed with him thereafter to well after he was at the emergency room. He had no headache, before during or after this event, weakness, numbness, balance problems, speech issues, or vision problems. He wrapped emergency room in 1548 with a temperature 36.6, pulse 65 regular, respiratory rate 16, blood pressure 140/92, and O2 saturation 96 percent. The emergency room he was described as being somewhat disoriented with some poor memory for recent events, but had no focal neurologic findings. CBC, Chem profile, urinalysis, and tox screen were negative, although BUN was mildly elevated. CT scan of the head was unremarkable. Chest x-ray was unremarkable. CT angiography of the head neck were unremarkable with no significant stenoses or vascular anomalies. MRI of the brain was unremarkable with no stroke of an acute nature and no signs of old small vessel ischemia or other issues. I reviewed all of these films. Although the patient does not remember getting the CAT scans he does remember the MRI. He has good memory this morning and he starting to remember things that happened to him yesterday morning prior to the event. He feels well with no pain or headaches and no other issues or symptoms. Blood pressure this morning is 130/81. Allergies Allergy/AdvReac Type Severity Reaction Status Date / Time No Known Allergies Allergy Mild Verified 01/06/22 17:25 Home Medications Medication Instructions Recorded Confirmed Type cyclobenzaprine 10 mg tablet 10 mg PO TID PRN #30 tab 06/30/21 01/06/22 Rx azathioprine 50 mg tablet 150 mg PO QAM 01/06/22 01/06/22 History Patient History Medical History Anemia HISTORY OF ANEMIA Colon ulcer Crohn's disease Triceps tendon rupture RIGHT SIDE (REASON FOR SURGERY) Surgical History History of colonoscopy LAST ONE 2 YEARS AGO Hx of elbow surgery Hx of LASIK Hx of right knee surgery Hx of vasectomy Family History Mother , in her 40s from ruptured aortic aneurysm Aortic aneurysm Marfans syndrome Aunt Breast cancer Grandmother (Paternal) Colorectal cancer Sister Marfans syndrome Transient ischemic attack (TIA) Father , in his mid 80s of pneumonia Parkinson disease Stroke Social History (Updated 01/07/22 @ 09:46 by Lew Allan MD) Smoking Status: Former smoker Tobacco Type: Cigars Cigarettes Per Day: 0; Second Hand Exposure: No; Hx Alcohol Use: Yes Alcohol type: beer Alcohol Intake Frequency: 2-4 x/Month Hx Substance Use: No Preferred Language: Taiwanese Communication Ability: Effective Visual Impairment: No Limitations Route Delivery Driver Required: No Beliefs That Will Affect Care: None marital status: Current Living Situation: Spouse Current Living Situation Comment: AND DAUGHTER current occupational status: employed current occupation: [employer] Other Information That Helps Us Care for You: No other: Previous [employer] Service- 20 years in [place] Feels Safe at Home: Yes Safety Concerns: Feels Safe At This Time Assistive Devices: None Review of Systems Constitutional: no fever, no fatigue and no weakness Eyes: no diplopia, no eye pain and no worsening vision Ear, Nose, Mouth, Throat: no ear pain, no tinnitus, no hearing loss, no dizziness, no snoring, no hoarseness and no dysphagia Respiratory: no cough and no dyspnea Cardiovascular: no chest pain, no palpitations and no lightheadedness Gastrointestinal: no abdominal pain, no nausea and no vomiting Musculoskeletal: no back pain, no neck pain, no radicular pain, no joint pain and no myalgia Integumentary: no rash and no lesions Neurologic: + memory loss; no gait abnormality, no localized weakness, no generalized weakness, no tingling, no numbness, no tremor(s), no abnormal movements, no headache(s), no abnormal speech and no confusion Psychiatric: no depression, no irritability, no anxiety, no difficulty concentrating, no confusion and no hallucinations Endocrine: no fatigue and no flushing Hematologic / Lymphatic: no easy bleeding and no easy bruising Allergy / Immunological: no urticaria and no problem reported Exam (Neuro) Physical Exam: The patient is right-handed. The patient is awake, alert, and attentive. Speech is normal without any aphasia or dysarthria. The patient can name objects, repeat phrases, and has normal spontaneous speech. Mentation and thought processes are intact, with orientation to person, place and time, and normal fund of knowledge, although he has a gaps between just before his event it 145 and the rest of the afternoon th at day.. Attention and concentration are normal. Mood and affect are normal and appropriate. General appearance and grooming are normal. Short and long-term memory are otherwise intact. Pupils are 4 mm bilaterally and reactive to light. Extraocular eye muscles are intact without nystagmus. Visual acuity and visual blackmon seem normal grossly to confrontation. There are no deficits to sensation in the face in all 3 distributions of the fifth cranial nerve bilaterally. Corneal reflexes are positive bilaterally. Facial strength and symmetry was normal bilaterally. Hearing seems normal bilaterally. Palate moves well without asymmetry. There is normal sternocleidomastoid and trapezius (shoulder shrug) strength bilaterally. Tongue is midline with good strength bilaterally. Neck has a full range of motion without discomfort. There are no cervical bruits bilaterally. There are no cranial or ocular bruits. Heart is without murmur. There is a regular rhythm and rate. Cervical, thoracic, and lumbar spine are nontender to palpation. Gait was not tested but states sitting up in bed is quite normal. With outstretched arms there is no drift. There are no resting, postural, or action tremors. There is no ataxia with finger to nose testing. There is good facility in the hands. No other abnormal involuntary movements are noted. Motor strength is 5/5 diffusely in the arms bilaterally including deltoids, biceps, triceps, brachioradialis, wrist flexors and extensors, preparole counseling aide, and intrinsic hand muscles. Motor strength is 5/5 diffusely in the legs bilaterally including hip flexors, quadriceps, hamstrings, gastrocnemius, tibialis anterior, tibialis posterior, and Peroneii muscles. Toe extensors are normal and there is good bulk in the extensor digitorum brevis muscles bilaterally. The limbs have good tone without rigidity or spasticity. There is no atrophy noted in the muscles. Muscle bulk is normal, there is no tenderness to palpation, no myotonia to percussion, and no fasciculations seen. Sensory examination is intact to touch and pin throughout all 4 limbs diffusely. Reflexes are 2/4 in the biceps, triceps, brachioradialis, quadriceps, and Achilles tendons bilaterally. There is no clonus bilaterally. Toes are downgoing with plantar stimulation bilaterally. Peripheral pulses are present and of normal quality distally in all 4 limbs. There is no peripheral edema noted in the limbs. Results & Data ([facility]) Vital Signs (Past 12 Hours) Vital Signs Temp Pulse Pulse Resp BP BP Pulse Ox 01/07/22 07:37 36.6 C 66 16 130/81 98 01/07/22 07:35 77 01/07/22 04:00 36.8 C 64 18 103/61 95 01/06/22 22:46 68 PG Care Time/CCT Total # of Minutes Spent Total Time Spent with Patient: Total time spent is greater than 50% in coordination of care (as documented) at patient's floor/unit and/or counseling patient: Coding Level of Care Code 71008 Office/OBS Consult Lvl 5 Diagnoses Transient global amnesia G45.4 Hypertension I10 Time Spent (min) 75
--- NOTE | 2022-01-07 14:54 | Discharge Summary ---
Date of Service January 07, 2022 Admission HPI Per Admitting Provider Jake Limon is a 51 year old male who presents to the ER with altered mental state. The patient cannot remember anything that happened today, yesterday or generally what he was doing earlier this week. He is unable to tell me the last thing he remembers. He is orientated to the year and month but not date or day. Aware he is in [facility] but cannot remember getting here. 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 History is taken from his over the phone. She reports he was in his normal health earlier today and this started suddenly after he received oral sex around 1:30pm today. Sudden onset amnesia since but he has been walking around fine. Other than his memory she has not noticed any facial droop, extremity weakness, change in speech, vision or hearing. In the ER stroke workup with CT head and CT angiogram head and neck were negative. Urine toxicology screen negative. She denies he has been drinking alcohol.No infection signs or symptoms found. He was referred to medicine due to persistent amnesia. Principal Diagnosis Transient global amnesia Discharge Exam Constitutional WD/WN, vitals as above Eyes EOM intact bilaterally; no conjunctival abnormality ENMT external ear and nose normal, oropharynx normal Neck trachea midline, no thyromegaly normal visual inspection Respiratory normal respiratory effort, lungs clear to auscultation no respiratory distress Cardiovascular RRR, no murmur, no edema Gastrointestinal (Abdomen) Inspection/Auscultation: abdomen normal to inspection; abdomen not distended Musculoskeletal no cyanosis or clubbing, extremities motor strength 5/5 Skin no rashes, warm and dry Neurologic moves all extremities and awake Psychiatric Orientation: alert, oriented to person and cooperative Discharge Data Allergies Allergy/AdvReac Type Severity Reaction Status Date / Time No Known Allergies Allergy Mild Verified 01/06/22 17:25 Consultations 01/06/22 17:59 ED Decision to Admit Stat 01/06/22 21:27 Consult Neurology Routine Ordered Studies 01/06/22 15:52 CT angio head w con Stat CT angio neck with con Stat CT head/brain wo con Stat 01/06/22 18:45 MR brain wo con Stat Hospital Course (1) Transient global amnesia: Orgasm as precipitating event in setting of mild dehydration (BUN increase, high specific gravity urine with ketonuria) No other neurological deficits but prudent to get MRI brain w/o contrast Consulted neurology - MRI normal. - Amnesia resolving by my interview with memory slowly returning for events from the afternoon. Seen by neurology and ready for discharge. (2) Crohn's disease: No active flare. Continue azathioprine 150mg PO daily. VTE Prophylaxis - low risk Diet - heart healthy Disposition - observation status to med/tele Total Time Total Time Spent Total Time Spent (In Minutes): 25 Discharge Plan Discharge Items Patient Disposition: Home - Self-Care Reason For Visit: TRANSIENT GLOBAL AMNESIA Discharge Diagnosis: Transient global amnesia Activity: Resume your previous activity Non-emergency contact: Primary Care Provider Call non-emergency contact if: your symptoms worsen Follow-up/Referrals: Lew Allan MD [Physician] - (Please follow up with neurology provider if you would like.) Asad Marin PA-C [Physician It Systems Engineer] - 01/14/22 2:45 pm Diet: Regular Addtl Attending Provider Instructions: Mr. Limon, You had an episode of transient global amnesia. This is a scary, but luckily a harmless phenomenon. It is often caused by stress, exercise, or sexual activity. Luckily, your testing all came back negative, so we can tell you with 100% certainty that you did not have a stroke. For most people, these episodes never recur, so it is probably nothing that will bother you again. If you do have another episode, or would like to follow-up with neurology, we have included their information. Pending Studies at Discharge: No Stand-Alone Forms: [facility], Smoking Cessation Medications and DC Order Prescriptions: Continued cyclobenzaprine 10 mg tablet 10 mg PO TID PRN (Reason: muscle spasm) Qty: 30 RF: 0 azathioprine 50 mg tablet 150 mg PO QAM RF: 0 Discharge Orders: Discharge Order (Routine); Ordered 01/07/22 Ordered By: Yan Mcclain Admission Data Admit Date/Time: 01/06/22 18:42 Attending Provider: Yan Mcclain Admit Provider: Gustavo Alejandre Primary Care Provider: Hugh Oviedo Other Providers: Lew Allan ; Yan Mcclain Other Interventions: Discharge Summary Assessment (RN) Last Done: 01/07/22 11:16 Coding Level of Care Code 68800 OBS Care - Discharge Diagnoses Transient global amnesia G45.4 Crohn's disease K50.90
--- NOTE | 2022-01-07 16:05 | Electrocardiogram Report ---
Test Reason : Blood Pressure : / mmHG Vent. Rate : 065 BPM Atrial Rate : 065 BPM P-R Int : 184 ms QRS Dur : 088 ms QT Int : 416 ms P-R-T Axes : 045 039 044 degrees QTc Int : 432 ms Poor data quality, interpretation may be adversely affected Normal sinus rhythm Normal ECG No previous ECGs available Confirmed by Sixto Adame ([id number]) on 01/07/2022 4:05:25 PM Referred By: REFERRED SELF Confirmed By:Sixto Adame
== END 2022-01-07 12:03 | disposition home or self-care (01) ==
LOC: ED 15:37 → 2N 15:37 → SUATTDRO 18:42 → 2N 21:26